=== PATIENT | male | born 1985 | race Caucasian/White ===

== ENCOUNTER 2017-09-03 17:35 | Emergency (ER) | payer MEDICAID ==
[~2017-09-03] VITALS: Ht 175.3 cm; Wt 78.0 kg
[2017-09-03 17:45] VITALS: BP 147/79
[2017-09-03] MEDS ORDERED: HYDROcodone/APAP 5/325 TABLET ONE (18:27)
[2017-09-03] MEDS ORDERED: IBUPROFEN 200 MG TABLET ONE (18:27)
[2017-09-03] MEDS ORDERED: IBUPROFEN 200 MG TABLET PO ONE (18:30)
[2017-09-03] MEDS ORDERED: HYDROcodone/APAP 5/325 TABLET PO ONE (18:30)
[2017-09-03] MEDS ORDERED: DIAZEPAM 5 MG TABLET ONE (19:04)
[2017-09-03] MEDS ORDERED: KETOROLAC 30 MG/1 ML ONE (19:04)
== END 2017-09-03 19:23 | disposition home or self-care (01) ==
LOC: ED 19:15
DX: S60.221A Contusion of right hand, initial encounter (principal); L03.113 Cellulitis of right upper limb; F17.200 Nicotine dependence, unspecified, uncomplicated; W22.8XXA Striking against or struck by other objects, initial encounter; Y93.89 Activity, other specified; Y92.098 Other place in other non-institutional residence as the place of occurrence of the external cause; Y99.8 Other external cause status
CPT/HCPCS: 99284

== ENCOUNTER 2017-09-07 20:01 | Inpatient (IN) | payer MEDICAID ==
[~2017-09-07] VITALS: Ht 177.8 cm; Wt 79.0 kg
[2017-09-07] MEDS ORDERED: AMPICILLIN/SULBACTAM 3 GM in SODIUM CHLORIDE 0.9% 100 ML IVPB ONE (21:30)
[2017-09-07] MEDS ORDERED: ONDANSETRON ODT 4 MG PO ONE (21:30)
[2017-09-07] MEDS ORDERED: SODIUM CHLORIDE 0.9% 1,000ML IVBOLUS ONE (21:30)
[2017-09-07] MEDS ORDERED: SODIUM CHLORIDE FLUSH 10ML SYR IVF ONE (21:30)
[2017-09-07] MEDS ORDERED: VANCOMYCIN PER PHARMACY MC ONE (21:30)
[2017-09-07] MEDS ORDERED: VANCOMYCIN 1,600 MG in SODIUM CHLORIDE 0.9% 250 ML IV ONE (21:30)
[2017-09-07] MEDS ORDERED: ONDANSETRON ODT 4 MG ONE (21:41)
[2017-09-07] MEDS ORDERED: HYDROmorphone 2 MG/ML, 1ML ONE (21:41)
[2017-09-07] MEDS: HYDROmorphone 1 MG/ML, 1ML IVPush PRN ×2 (21:46→23:00)
[2017-09-07 21:47] LABS: BASOPHILS # (AUTO) 0.06 x10^3/uL (0-0.1); BASOPHILS % (AUTO) 1 % (0-1); EOSINOPHILS # (AUTO) 0.24 x10^3/uL (0-0.4); EOSINOPHILS % (AUTO) 3 % (1-7); HCT (SEDRATE) 41.8 % (39.2-51.8); LYMPHOCYTES # (AUTO) 1.63 x10^3/uL (1-3.4); LYMPHOCYTES % (AUTO) 22 % (22-44); MD NO; MEAN CORPUSCULAR HEMOGLOBIN 34.5 pg (27.5-34.5); MEAN CORPUSCULAR HGB CONC 34.4 g/dL (33.2-36.2); MEAN CORPUSCULAR VOLUME 100.5 fL (81-97); MEAN PLATELET VOLUME 8.3 fL (7.4-10.4); MONOCYTES # (AUTO) 0.55 x10^3/uL (0.2-0.8); MONOCYTES % (AUTO) 7 % (2-9); NEUTROPHILS # (AUTO) 5.02 x10^3/uL (1.8-6.8); NEUTROPHILS % (AUTO) 67 % (42-75); PLATELET COUNT 319 x10^3/uL (130-400); RED BLOOD COUNT 4.16 x10^6/uL (4.38-5.82); RED CELL DISTRIBUTION WIDTH 13.5 % (9.4-14.8)
[2017-09-07 21:58] LABS: ALBUMIN 3.1 g/dL (3.4-5.0); ANION GAP 8 mmol/L (5-15); CALCIUM 9.8 mg/dL (8.5-10.1); CHLORIDE 109 mmol/L (98-107); CREATININE 0.93 mg/dL (0.7-1.3)
[2017-09-07 22:18] LABS: SEDIMENTATION RATE 39 mm/hr (0-10)
[2017-09-07 23:10] VITALS: BP 152/104
[2017-09-07] MEDS ORDERED: VANCOMYCIN PER PHARMACY MC PRN (23:30)
[2017-09-07] MEDS ORDERED: D5%-0.45NACL+KCL 20MEQ 1,000 ML IV SCH (23:37)
[2017-09-07] MEDS ORDERED: NICOTINE 14MG/24 HR PATCH.TD24 ONE (23:51)
[2017-09-08] MEDS ORDERED: NICOTINE 14MG/24 HR PATCH.TD24 TD SCH
[2017-09-08] MEDS ORDERED: LABETALOL 5MG/ML, 20ML IVPush PRN
[2017-09-08] MEDS ORDERED: TEMAZEPAM 15 MG CAPSULE PO PRN
[2017-09-08] MEDS ORDERED: ONDANSETRON 2MG/ML, 2ML IVPush PRN
[2017-09-08] MEDS ORDERED: HYDROcodone/APAP 5/325 TABLET PO PRN
[2017-09-08] MEDS ORDERED: ONDANSETRON ODT 4 MG PO PRN
[2017-09-08] MEDS ORDERED: DOCUSATE 100 MG CAPSULE PO PRN
[2017-09-08] MEDS ORDERED: BUPIVACAINE/PF 0.5% ONE (00:22)
[2017-09-08] MEDS ORDERED: BACITRACIN 50,000 UNIT ONE (00:22)
[2017-09-08] MEDS ORDERED: BACITRACIN 50,000 UNIT IRRIG ONE (00:39)
[2017-09-08] MEDS ORDERED: BUPIVACAINE/PF 0.5% INJ ONE (00:39)
[2017-09-08] MEDS ORDERED: MIDAZOLAM 1 MG/ML, 2ML ONE (00:39)
[2017-09-08] MEDS ORDERED: FENTANYL PF 250 MCG/5ML ONE (00:39)
[2017-09-08] MEDS ORDERED: PROPOFOL 10 MG/ML, 20ML ONE (00:50)
[2017-09-08] MEDS ORDERED: LIDOCAINE-MPF 2% ,5ML ONE (00:50)
[2017-09-08] MEDS ORDERED: DEXAMETHASONE 4 MG/ML, 1ML ONE ×2 (00:50)
[2017-09-08] MEDS ORDERED: ONDANSETRON 2MG/ML, 2ML ONE ×3 (01:10)
[2017-09-08] MEDS ORDERED: KETOROLAC 30 MG/1 ML ONE (01:11)
[2017-09-08] MEDS ORDERED: FENTANYL PF 100 MCG/2ML ONE (01:22)
[2017-09-08] MEDS ORDERED: HALOPERIDOL 5 MG/ML ONE (01:27)
[2017-09-08] MEDS ORDERED: OXYcodone 5 MG/5 ML ORAL.SOL UDC PO PRN (01:30)
[2017-09-08] MEDS ORDERED: ALBUTEROL/IPRATROPIUM 2.5MG/0.5MG, 3 ML NPPB PRN (01:30)
[2017-09-08] MEDS ORDERED: ACETAMINOPHEN 325 MG TABLET PO PRN (01:30)
[2017-09-08] MEDS ORDERED: HYDROmorphone 1 MG/ML, 1ML IV PRN (01:30)
[2017-09-08] MEDS ORDERED: HALOPERIDOL 5 MG/ML IV PRN (01:30)
[2017-09-08] MEDS ORDERED: MEPERIDINE/PF 25MG/0.5ML IVPush PRN (01:30)
[2017-09-08] MEDS ORDERED: FENTANYL PF 100 MCG/2ML IV PRN (01:30)
[2017-09-08] MEDS ORDERED: LORazepam 2 MG/ML, 1ML IVPush PRN (01:30)
[2017-09-08] MEDS ORDERED: hydrALAzine 20 MG/ML, 1ML IV PRN (01:30)
[2017-09-08] MEDS ORDERED: PROMETHAZINE 25 MG/ML, 1ML IV PRN (01:30)
[2017-09-08] MEDS ORDERED: LABETALOL 5MG/ML, 20ML IV PRN (01:30)
[2017-09-08] MEDS: morphine SULFATE 10 MG/ML, 1ML IVPush PRN ×2 (01:40→04:15)
[2017-09-08] MEDS ORDERED: MORPHINE SULFATE 4 MG/ML, 1ML ONE ×2 (01:41→04:11)
[2017-09-08] MEDS ORDERED: OXYcodone 5 MG/5 ML ORAL.SOL UDC ONE (01:41)
[2017-09-08] MEDS ORDERED: MEPERIDINE/PF 50 MG/ML ONE (01:56)
[2017-09-08] MEDS ORDERED: PHARMACOKINETIC CONSULTATION MC ONE (03:30)
[2017-09-08] MEDS ORDERED: PHARMACOKINETIC MONITORING MC PRN (03:30)
[2017-09-08] MEDS ORDERED: AMPICILLIN/SULBACTAM 3 GM in SODIUM CHLORIDE 0.9% 100 ML IV SCH (04:00)
[2017-09-08] MEDS ORDERED: VANCOMYCIN 1,500 MG in SODIUM CHLORIDE 0.9% 250 ML IV SCH (11:00)
== END 2017-09-08 05:04 | disposition left against medical advice (07) | DRG 513 ==
LOC: ED 23:50 → EDIP 23:58 → 4NOR 09-08 02:30
PROVIDERS: ADMIT Internal Medicine; ATTEND Internal Medicine
PROC: 0JBJ0ZZ Excision of Right Hand Subcutaneous Tissue and Fascia, Open Approach (ICD-10-PCS; principal; 2017-09-07)
DX: M86.141 Other acute osteomyelitis, right hand (principal); M00.9 Pyogenic arthritis, unspecified; L03.113 Cellulitis of right upper limb; L02.511 Cutaneous abscess of right hand; F12.90 Cannabis use, unspecified, uncomplicated; F17.210 Nicotine dependence, cigarettes, uncomplicated; F41.9 Anxiety disorder, unspecified; M65.841 Other synovitis and tenosynovitis, right hand; Z53.21 Procedure and treatment not carried out due to patient leaving prior to being seen by health care provider
CPT/HCPCS: 36415; 80048; 82040; 85025; 85651; 86141; 87040; 87070; 87075; 87147; 87205; 96365; 96368; 96375; 96376; J0295; J1100; J1170; J1885; J2175; J2250; J2405; J2704; J3010; J3370; J3490; Q0162; J2270; J7030; J7050

== ENCOUNTER 2020-02-14 21:07 | Emergency (ER) | payer MEDICAID ==
[~2020-02-14] VITALS: Ht 182.9 cm; Wt 75.7 kg
[2020-02-14 21:11] VITALS: BP 124/81
[2020-02-14] MEDS ORDERED: OXYcodone/APAP 5/325MG TABLET PO ONE (22:30)
[2020-02-14] MEDS ORDERED: OXYcodone/APAP 5/325MG TABLET ONE (22:39)
--- NOTE | 2020-02-14 22:53 | NUR ---
Patient upset stating that "you aren't fucking going anything, Im fuckin leaving." Patient ambulated out of the ER
== END 2020-02-14 22:56 | disposition left against medical advice (07) ==
LOC: ED 22:19
DX: K08.89 Other specified disorders of teeth and supporting structures (principal)
CPT/HCPCS: 99283

== ENCOUNTER 2020-06-02 12:45 | Emergency (ER) | payer OTHER, MEDICAID ==
[~2020-06-02] VITALS: Ht 175.3 cm; Wt 79.5 kg
[2020-06-02 13:01] VITALS: BP 134/89
[2020-06-02] MEDS ORDERED: PROPARACAINE OPHTH 0.5%, 15ML ONE (13:18)
[2020-06-02] MEDS ORDERED: FLUORESCEIN OPHTHALMIC 1 MG STRIP ONE (13:18)
--- NOTE | 2020-06-02 13:29 | NUR ---
First contact with pt. Pt reports he was at work and some melamine shavings got into his R eye. Pt reports blurred vision and eye pain.
--- NOTE | 2020-06-02 13:30 | NUR ---
Dr. Duggan at bedside to evlauate pt.
--- NOTE | 2020-06-02 13:42 | NUR ---
EYE IRRIGATION PREFORMED AT BEDSIDE. PT TOLERATED WELL.
[2020-06-02] MEDS ORDERED: FLUORESCEIN OPHTHALMIC 1 MG STRIP EACHEYE ONE (14:00)
[2020-06-02] MEDS ORDERED: PROPARACAINE OPHTH 0.5%, 15ML EACHEYE ONE (14:00)
--- NOTE | 2020-06-02 14:24 | NUR ---
Dr. Duggan at bedside to discuss POC with pt.
== END 2020-06-02 14:49 | disposition home or self-care (01) ==
LOC: ED 14:18
DX: T15.01XA Foreign body in cornea, right eye, initial encounter (principal); H10.211 Acute toxic conjunctivitis, right eye; Z77.098 Contact with and (suspected) exposure to other hazardous, chiefly nonmedicinal, chemicals; X58.XXXA Exposure to other specified factors, initial encounter; Y93.89 Activity, other specified; Y92.89 Other specified places as the place of occurrence of the external cause; Y99.0 Civilian activity done for income or pay
CPT/HCPCS: 99283